=== PATIENT | male | born 1990 | race Caucasian/White ===

== ENCOUNTER 2025-04-06 10:30 | Day surgery (SDC) | payer MEDICARE, SELFPAY ==
[2025-04-06 10:34] VITALS: BP 165/103; PULSE 70; RESP 15; TEMP 35.8; O2SAT 96
--- NOTE | 2025-04-06 10:45 | DI.RAD_ITS ---
Exam(s) XR SOFT TISSUE NECK EXAM: XR SOFT TISSUE NECK CLINICAL HISTORY: Foreign body sensation. TECHNIQUE: 2D digital imaging was performed. COMPARISON: No exams were available for comparison FINDINGS: Two views-AP and lateral with soft tissue technique: There is an anterior fusion plate at C6-7 with successful fusion across these 2 vertebral bodies noted. All the disc spaces otherwise appear unremarkable and fluid in C5-6 level which is 1 level above the fusion. There is no prevertebral soft tissue swelling. No gas in the soft tissues. Epiglottis is not swollen. There is no radiopaque foreign body evident Incidentally noted are multiple healed right-sided upper rib fractures involving the 2nd, 3rd, and 4th ribs which are included in the field of view of this neck study. IMPRESSION: No radiopaque foreign body evident. DATA REPOSITORY: RADIATION DOSE DELIVERED:
[2025-04-06] MEDS: Simethicone/Sod Bicarb/Cit Ac, 4 gram PACKET 1 PACKET PO (10:49)
--- NOTE | 2025-04-06 10:49 | W.ED.GENAD ---
Discharge Plan Disposition Patient Disposition: Admit to [facility] Condition: Stable Discharge Details Clinical Impression: Foreign body in esophagus, Dysphagia Attending Provider: Maria Eugenia Fernandez Primary Care Provider: CarleyLocal ED Provider: Lalita Fabian [facility] General Mode of arrival: ambulatory. Date/Time Provider Initiated Documentation: 04/06/25 10:39. Limitations to Documentation: no limitations. Information obtained by: patient, RN notes reviewed and old records reviewed. HPI Narrative: 35 year old male presents with foreign body sensation after taking a edwin tablet this am. Has happened once in the past and was given dexamethasone and muscle relaxer. Patient was given effervescent granules upon arrival to the department which she regurgitated. He has been unable to handle his secretions. He is speaking in full sentences. Related Data Home Medications ?Medication ?Instructions ?Recorded ?Confirmed fexofenadine 60 mg capsule 220 mg PO DAILY 04/06/25 04/06/25 lisdexamfetamine 30 mg capsule 30 mg PO DAILY 04/06/25 04/06/25 (Vyvanse) omeprazole 20 mg capsule,delayed 20 mg PO DAILY 04/06/25 04/06/25 release Allergies Allergy/AdvReac Type Severity Reaction Status Date / Time No Known Allergies Allergy Unverified 04/06/25 10:37 General Stated Complaint: ForeignBody SULEMAN: 3 Review of Systems All systems reviewed & are unremarkable except as noted in HPI and below ENT Ears, Nose, Mouth, and Throat: Reports dysphagia Gastrointestinal Gastrointestinal: Reports dysphagia Exam Const Nutritional Appearance: average body habitus Orientation: alert, awake and oriented x3 HENMT General nose exam: external nose normal Face and sinus: normal facial exam Mouth: moist mucous membranes and no muffled voice Resp Effort & Inspection: normal respiratory effort and able to speak in complete sentences Course Vital Signs Vital signs: Vital Signs Temperature 35.8 C L 04/06/25 10:34 Pulse 70 04/06/25 10:34 Respiratory Rate 15 04/06/25 10:34 Blood Pressure 165/103 H 04/06/25 10:34 Pulse Oximetry 96 04/06/25 10:34 Temperature 35.8 C L 04/06/25 10:34 Temperature Source Temporal Artery Scan 04/06/25 10:34 Pulse 70 04/06/25 10:34 Respiratory Rate 15 04/06/25 10:34 Blood Pressure 165/103 H 04/06/25 10:34 Blood Pressure Position Sitting 04/06/25 10:34 Pulse Oximetry 96 04/06/25 10:34 Oxygen Delivery Method Room Air 04/06/25 10:34 Oxygen Flow Rate 0 04/06/25 10:34 Pain Level 5 04/06/25 10:34 Medical Decision Making 35 year old male presents with foreign body sensation after taking a edwin tablet this am. Has happened once in the past and was given dexamethasone and muscle relaxer. Patient was given effervescent granules upon arrival to the department which she regurgitated. He has been unable to handle his secretions. He is speaking in full sentences. Soft tissue neck x-ray ordered, and milligrams dexamethasone p.o. ordered. Will attempt an additional effervescent granule. 1215: On patient re-evaluation still unable to swallow secretions, will consult surgery. 1215: Surgery paged. 1300: Spoke with Dr. Fernandez with surgery via webex regarding patient case and details she agrees to scope patient around 4 pm, recommends NPO and IV fluids. 1317: Called to the bedside by family they are unsure if they would like to go ahead with the scope procedure they are requesting muscle relaxers and the reasoning for not wanting the scope as they have their dog in the car here with them. 60 mg IM Norflex ordered, and I did encourage them to stay and that the endoscopy is beneficial escpecially if this has occurred in the past. Patient is still unable to swallow his secretions. 1415: OR staff here at [facility] to speak with patient, patient agrees to have IV placed and get into gown. Dr. Fernandez here at [facility] for eval, patient to OR in hemodynamically stable condition. This text was generated using [employer] system, please disregard any oddities of phrase or misspellings. Imaging Data Radiologic Study: Imaging: X-Ray Radiologist's impression: Exam(s) XR SOFT TISSUE NECK EXAM: XR SOFT TISSUE NECK CLINICAL HISTORY: Foreign body sensation. TECHNIQUE: 2D digital imaging was performed. COMPARISON: No exams were available for comparison FINDINGS: Two views-AP and lateral with soft tissue technique: There is an anterior fusion plate at C6-7 with successful fusion across these 2 vertebral bodies noted. All the disc spaces otherwise appear unremarkable and fluid in C5-6 level which is 1 level above the fusion. There is no prevertebral soft tissue swelling. No gas in the soft tissues. Epiglottis is not swollen. There is no radiopaque foreign body evident Incidentally noted are multiple healed right-sided upper rib fractures involving the 2nd, 3rd, and 4th ribs which are included in the field of view of this neck study. IMPRESSION: No radiopaque foreign body evident. PFSH All Active Problems (Updated 04/06/25 @ 14:37 by Lalita Fabian NP) Dysphagia (Acute) Foreign body in esophagus (Acute) Social History Smoking risk assessment performed?: No Do you feel safe at home: Yes Do you feel safe in your relationship?: Yes
[2025-04-06] MEDS: Dexamethasone 10 MG/ML VIAL PO (10:53)
--- NOTE | 2025-04-06 13:59 | W.PM.HP.N ---
Date of service: 04/06/25 Time of Service: 13:59 Assessment and Plan Assessment and plan (1) Foreign body in esophagus: Status: Acute Assessment and plan: plan emergent egd for clearance of esophageal obstruction. unusual for a pill to obstruct the esophagus. i suspect there is underlying stricture or EoE or other lesion and the pill was the final straw. Evaluation will be diagnostic and therapeutic. Discussion of risks, benefits, alternatives and expectations w patient includes risks of pain, bleeding, perforation of esophagus, unremarkable exam, or need for more procedures. anesthesia related risks also reviewed. GETA planned for emergent scope on full stomach. (2) Dysphagia: Status: Acute History of Present Illness Narrative: Chief complaint: foreign body in esophagus HPI: 35yo M who took an edwin allergy pill today and felt it lodge in the throat. Discomfort is low in the neck and he feels a heartburn sensation in his chest. He has not been tolerating his secretions since then. He has been retching and spitting into a bag. XR has been unremarkable. Effervescent granules were not helpful. The discomfort is severe. he has asthma and chronic gerd for which he takes prilosec otc. He reports some dysphagia since a cervical fusion several years ago after a spinal fracture. PFSH All Active Problems (Updated 04/06/25 @ 14:37 by Lalita Fabian NP) Dysphagia (Acute) Foreign body in esophagus (Acute) Social History Smoking risk assessment performed?: No Do you feel safe at home: Yes Do you feel safe in your relationship?: Yes Meds Allergies and Home Medications Allergies Allergy/AdvReac Type Severity Reaction Status Date / Time No Known Allergies Allergy Unverified 04/06/25 10:37 Home Medications ?Medication ?Instructions ?Recorded ?Confirmed ?Type fexofenadine 60 mg capsule 220 mg PO DAILY 04/06/25 04/06/25 History lisdexamfetamine 30 mg capsule 30 mg PO DAILY 04/06/25 04/06/25 History (Vyvanse) omeprazole 20 mg capsule,delayed 20 mg PO DAILY 04/06/25 04/06/25 History release Exam Narrative Exam Narrative: awake, NAD eomi, MMM midline trachea, neck is symmetric PULM: normal resp effort, equal chest rise with respiration, no wheezing audible CARDIAC: normal PMI, no jvd, regular rate, normal perfusion abdomen is nondistended. extremities are without deformity, normal movement of all four extremities speech is clear and coherent mood and affect are congruent, no focal neurological deficits skin without rash Results Last Vital Signs Temp 96.4 F L 04/06/25 10:34 Pulse 70 04/06/25 10:34 Resp 15 04/06/25 10:34 BP 165/103 H 04/06/25 10:34 Pulse Ox 96 04/06/25 10:34 Time Spent Time spent with Patient: <40 minutes Time was spent: preparing to see the patient(eg.review tests), referring, communicating with other health care services manager and counseling the patient
[2025-04-06] MEDS: Orphenadrine 60 MG/2 ML VIAL IM (14:10)
--- NOTE | 2025-04-06 14:45 | ENDO_ITS ---
Date of service: 04/06/25 Time of Service: 15:26 Endoscopy Report DATE OF PROCEDURE: 04/06/25 PRE-OP DIAGNOSIS: esophageal obstruction POST-OP DIAGNOSIS: same (esophageal obstruction by pill impaction, esophagitis, esophageal stricture at 25cm) PROCEDURE: EGD with biopsy SURGEON: Maria Eugenia Fernandez ANESTHESIA TYPE: General LMA/ETT ESTIMATED BLOOD LOSS: 2 PATHOLOGY: none sent (1. antrum biopsy) COMPLICATIONS: None DISPOSITION: same day INDICATIONS: Esophageal disimpaction and evaluation PROCEDURE DESCRIPTION: 35yo M who presented to the ED for esophageal obstruction. It occurred acutely around 8am after he swallowed an Dana allergy pill. He felt the pill get stuck in his throat and was unable to swallow after that. He was not tolerating his own secretions, Retching did not dislodge the pill. XR was unremarkable. No signs of perforation were present. Endoscopic evaluation and disimpaction were indicated. Informed consent was obtained after discussion of risks, benefits, alternatives and expectations, including but not limited to pain, bleeding, esophageal perforation. He was taken to the operating room. General endotracheal anesthesia was induced and the patient was placed in left lateral decubitus position. A time out was performed. Lubricated endoscope was passed through a bite block into the esophagus. At 25cm from the incisors, a white substance consistent with partially softened pill was identified. It had flattened into a firm disc-like shape and obstructed the esophagus. Circumferential chronic appearing esophagitis was visualized in the area above the impaction, and a narrow tapering of the esophageal lumen was observed down to the level of the obstruction. Cold forceps and Morgan net were used to scrape away and remove pill matter from the center of the obstruction until the cold forcep was able to push through. The forcep was passed beyond the obstruction point, opened, and pulled back. This dislodged the disc-like obstruction into t he more proximal non-strictured esophagus. The pieces were then broken into smaller fragments and irrigated distally. The esophagus was examined at 25cm and a stricture was noted. Friable acutely inflamed mucosa in this area precluded biopsy of the stricture and precluded safe dilation. The endoscope was not able to be passed beyond the stricture. Illumination beyond the stricture vaguely identified the GE junction, but not well enough for evaluation. The esophagus was desufflated and the endoscope withdrawn. The remainder of the esophagus appears pink and normal. The mouth was suctioned out and the procedure ended. 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 The cause appears to be impaction at a stricture of the esophagus at 25cm. Recommend daily PPI and reevaluation with endoscopy in 4-6 weeks when the more acute inflammation resolves. Biopsy can distinguish peptic stricture from eosinophilic esophagitis. Dilation can also be performed at that time if needed. Pt is from [place] and plans to travel back home. I will prescribe pantoprazole 40mg daily to our local pharmacy to begin today. He and his were instructed to see a PCP and GI at home in [place] to continue treatment and evaluation of this problem. They verbalized understanding. Liquid diet for 72h then resume regular diet as tolerated, with care to avoid lumps of meat/bread. Drink between bites, chew thoroughly, and choose foods that are moist with sauces preferentially. See me or call me as needed.
--- NOTE | 2025-04-06 14:45 | W.PM.DSUDISC ---
Date of service: 04/06/25 Discharge Plan Disposition Patient Disposition: Home Condition: Stable Discharge Details Reason For Visit: Pill stuck in throat Attending Provider: Maria Eugenia Fernandez Primary Care Provider: Carley,Local Home Meds and New Rx's Prescriptions: New pantoprazole 40 mg tablet,delayed release (DR/EC) 40 mg PO DAILY Qty: 30 0RF Continued fexofenadine 60 mg capsule 220 mg PO DAILY lisdexamfetamine [Vyvanse] 30 mg capsule 30 mg PO DAILY Discontinued omeprazole 20 mg capsule,delayed release(DR/EC) 20 mg PO DAILY Discharge Instructions Additional Instructions: Findings today show an esophagus obstruction with a pill because of a narrowing at 25cm from the teeth. This is a stricture of the esophagus. It was too inflamed to biopsy or stretch. You need another EGD procedure in a month or so after being on the new acid jorge luis pantoprazole. This will help calm the esophagus and allow biopsies and maybe even dilation to be performed. Biopsies will help determine if this is a stricture from reflux or if it is an allergic problem. Make sure to follow up with a primary care provider at home, and see GI for this as soon as possible. Follow a liquid diet only for 72 hours then you may resume normal diet. Avoid lumps of bread and meat, and make sure to chew food well. Remember you have a narrow area in the esophagus and need to be careful not to eat things that will get stuck. Drink between bites to help wash food down. Stand Alone Forms: Anesthesia Discharge Inst., DSU Post EGD Instructions, Hero Larios (DSU) Activity:: Activity as Tolerated Diet:: Full liquid diet for 72 hours Discharge Orders Discharge Orders: Discharge Order (Routine); Ordered 04/06/25 Ordered By: Maria Eugenia Fernandez DS: Diagnosis Discharge Diagnosis (1) Foreign body in esophagus: Status: Acute (2) Dysphagia: Status: Acute (3) Stricture of esophagus: Status: Acute
[2025-04-06] MEDS: Lactated Ringers 1,000 ML 30 ML IV (14:50)
--- NOTE | 2025-04-06 14:51 | W.ANESPRE ---
General Info Date of Service Date Performed: 04/06/25 Height: 6 ft 2 in Weight: 99.79 kg Body Mass Index (BMI): 28.2 Surgical Procedure: Operation Date: 04/06/25 15:35 Proposed Procedure Side Surgeon p Gastroscopy/Removal Foreign Body Maria Eugenia Fernandez MD Meds Allergies and Home Medications Allergies Allergy/AdvReac Type Severity Reaction Status Date / Time No Known Allergies Allergy Unverified 04/06/25 10:37 Home Medication ?Medication ?Instructions ?Recorded fexofenadine 60 mg capsule 220 mg PO DAILY 04/06/25 lisdexamfetamine 30 mg capsule 30 mg PO DAILY 04/06/25 (Vyvanse) omeprazole 20 mg capsule,delayed 20 mg PO DAILY 04/06/25 release Current Visit Medications: Current Medications Generic Name Dose Route Start Last Admin Trade Name Freq PRN Reason Stop Dose Admin Sodium Chloride 1,000 mls @ 150 mls/hr 04/06/25 12:59 Saline 1000ml Bag IV 04/06/25 19:38 INFUSION STA IV Miscellaneous Supplies 1 each 04/06/25 13:00 Iv Access-Emergency Dept IV DIRECTED JANET Sodium Chloride 0 ml 04/06/25 12:59 Normal Saline Flush 10 Ml Syr IVP PRN PRN Sodium Chloride 0 ml 04/06/25 20:00 Normal Saline Flush 10 Ml Syr IVP BID JANET Sodium Chloride 0 ml 04/06/25 12:59 Normal Saline 10 Ml Vial IJ DIRECTED PRN PFSH Active Problems Active Problems: Problem Status Onset Code Dysphagia Acute R13.10 Foreign body in esophagus Acute T18.108A Vital Signs and Lab Results Vital Signs Most Recent Vital Signs in EMR: Most Recent Vital Signs Temp Pulse Resp BP Pulse Ox 35.8 C L 70 15 165/103 H 96 04/06/25 10:34 04/06/25 10:34 04/06/25 10:34 04/06/25 10:34 04/06/25 10:34 Anesthesia Assessment and Plan Anesthesia History Personal History: No History of Anesthesia Complications Family History: No Family History of Anesthesia Complications Exercise Tolerance Exercise Tolerance: Metabolic Equivalents>4 Pertinent Negatives Pertinent Negatives: No Symptoms of GERD (GeRD), No Major Cardiovascular Symptoms or Complaints, No Major Pulmonary Symptoms or Complaints and No History of CVA/TIA Cardiac & Pulmonary Exam Cardiac Exam: Normal S1/S2 Heart Sounds Pulmonary Exam: Clear Bilateral Breath Sounds Implantable Cardiac Device Does patient have a Pacemaker or an ICD?: No Airway Exam Known Difficult Airway: No Mallampati Class: 2 Mouth Opening: Normal (> 3cm) Thyromental Distance: Greater than 3 cm Facial Hair: Full Wright Neck Range of Motion: History of Cervical Fusion Neck Circumference: Normal Teeth Condition: Normal Dentition ASA Classification ASA Score: ASA 2 Emergency Case?: Yes NPO Status NPO Status: NPO Clears >2 hours, Solids >8 hours Anesthesia Plan Resuscitation Status: Full Code Anesthesia Technique: General Anesthesia Airway Planned: Endotracheal Tube Monitors Used: Standard Monitors
[2025-04-06 14:54] VITALS: BMI 28.2
[2025-04-06 15:33] VITALS: BP 158/101; PULSE 79; RESP 15; TEMP 36.7; O2SAT 96
[2025-04-06 15:38] VITALS: BP 161/104; PULSE 79; RESP 15; TEMP 36.7; O2SAT 97
[2025-04-06 15:45] VITALS: BP 158/100; PULSE 81; RESP 16; TEMP 36.6; O2SAT 96
[2025-04-06 15:48] VITALS: BP 143/97; PULSE 75; RESP 16; TEMP 36.6; O2SAT 97
--- NOTE | 2025-04-06 15:51 | W.ANESPOSTOP ---
Postoperative Evaluation Date, Time and Location Date Performed: 04/06/25 Time Performed: 15:52 Patient Location: Day Surgery Unit Vital Signs Most Recent Imported Vital Signs: Most Recent Vital Signs Temp Pulse Resp BP Pulse Ox 36.7 C 79 15 158/101 H 96 04/06/25 15:33 04/06/25 15:33 04/06/25 15:33 04/06/25 15:33 04/06/25 15:33 Pain Score Most Recent Pain Score: Most Recent Pain Score Pain Level 0 04/06/25 15:33 Assessment Mental Status: Awake (Alert & Oriented to Patient Baseline) Airway and Respiratory Function: Patent airway with normal (patient baseline) respiratory exam Cardiovascular Function: Hemodynamically Stable Hydration Status: Adequately Hydrated Nausea & Vomiting: No Nausea or Vomiting Pain: Pt. Denies Any Pain Peripheral Nerve Block: Patient did not receive a nerve block
[2025-04-06] MEDS: Albuterol/Ipratropium 3 ML UPD VIAL UPD (16:06)
[2025-04-06 16:20] VITALS: BP 145/94; PULSE 66; RESP 16; TEMP 36.6; O2SAT 98
== END 2025-04-06 16:32 | disposition home or self-care (01) ==
LOC: ER 14:37 → SUR 14:49
PROVIDERS: Emergency Provider Registered Nurse Emergency; Visit Provider Surgery
PROC: 0DC68ZZ Extirpation of Matter from Stomach, Via Natural or Artificial Opening Endoscopic (ICD-10-PCS; CPT 43247; principal; 2025-04-06 15:30)
DX: T18.108A Unspecified foreign body in esophagus causing other injury, initial encounter (principal); R13.10 Dysphagia, unspecified; K22.2 Esophageal obstruction
CPT/HCPCS: 43239; 96372; 99285; J2360; 70360; J1100; J2704; J7620